=== PATIENT | male | born 1950 | race Asian ===

== ENCOUNTER 2017-03-10 12:00 | Outpatient (CLI) | payer OTHER | END 2017-03-10 19:49 | disposition home or self-care (01) | LOC: RAD 12:00 | DX: M25.512 Pain in left shoulder (principal) ==

== ENCOUNTER 2017-03-27 15:24 | Outpatient (CLI) | payer OTHER | END 2017-03-27 20:05 | disposition home or self-care (01) | LOC: RAD 15:24 | DX: M54.6 Pain in thoracic spine (principal) ==

== ENCOUNTER 2017-10-28 12:59 | Emergency (ER) | payer OTHER ==
[~2017-10-28] VITALS: Ht 177.8 cm; Wt 81.6 kg
== END 2017-10-28 14:07 | disposition home or self-care (01) ==
LOC: ED 12:59
PROC: 0HQ1XZZ Repair Face Skin, External Approach (ICD-10-PCS; principal; 2017-10-28)
DX: S01.81XA Laceration without foreign body of other part of head, initial encounter (principal); W22.8XXA Striking against or struck by other objects, initial encounter
CPT/HCPCS: 99282